=== PATIENT | female | born 2000 | race Caucasian/White ===

== ENCOUNTER 2020-08-21 11:10 | Emergency (ER) | payer OTHER, SELFPAY ==
[2020-08-21 11:29] VITALS: BP 123/68; PULSE 80; RESP 18; TEMP 36.7; O2SAT 98; BMI 34.3
--- NOTE | 2020-08-21 11:32 | ED.GENADULT ---
HPI - General Adult General Chief complaint: General Medical Stated complaint: rash Time Seen by Provider: 08/21/20 11:31 Source: patient Mode of arrival: ambulatory Limitations: no limitations History of Present Illness HPI narrative: patient woke up with rash on her face, she feels congested and has a headache. works at [place] and is concerned about COVID Onset (ago): day(s) Location: face Severity: mild Associated symptoms: cough, headaches and nausea/vomiting Related Data Previous Rx's Medication Instructions Recorded hydrocortisone 1 appl TOPICAL BID #28.35 g 08/21/20 Allergies Allergy/AdvReac Type Severity Reaction Status Date / Time No Known Allergies Allergy Verified 08/21/20 11:32 [No Known Allergies*] Review of Systems Constitutional: Constitutional: Reports no additional constitutional complaints Eyes: Eyes: Reports no additional eye complaints ENT: Denies dizziness Cardiovascular: Cardiovascular: Reports no additional cardiovascular complaints Respiratory: Respiratory: Reports as per HPI Gastrointestinal: Gastrointestinal: Reports no additional gastrointestinal complaints Genitourinary: Genitourinary: Reports no additional female genitourinary complaints Musculoskeletal: Musculoskeletal: Reports no additional musculoskeletal complaints Integumentary/Breasts: Skin/Breast: Denies rash Neurologic: Reports system reviewed and no additional complaints, except as documented, Denies dizziness and Denies Sensory deficit (Neuro) Psychiatric: Psychiatric: Denies anxiety Physical Exam Vital Signs: Vital Signs: Last Vital Signs Temp 98.1 F 08/21/20 11:29 Pulse 80 08/21/20 11:29 Resp 18 08/21/20 11:29 BP 123/68 08/21/20 11:29 Pulse Ox 98 08/21/20 11:29 Body Mass Index 34.3 Const: General: healthy appearing Nutritional Appearance: average body habitus Orientation/consciousness: oriented to person and patient oriented x3 Limitations: no limitations HENMT: Head: Yes normal to inspection Ears: external ears normal General nose exam: Normal external nose present Mouth: Normal oral and palatal mucosa present and oropharynx normal Throat: Yes posterior oropharynx normal Eyes: General: appearance normal, both eyes and all related structures Neck: Other: supple Neck: Yes normal visual inspection Chest: Chest palpation & inspection: normal inspection of the chest Resp: Auscultation: clear to auscultation bilaterally Cardio: Jugular venous distension: no JVD Rate: regular rate Rhythm: regular rhythm Heart sounds: S1 normal heart sound present and S2 normal heart sound present GI: Inspection: Yes normal to inspection Palpation (GI): Soft to palpation, nontender and No hepatosplenomegaly present Auscultation: normal bowel sounds : General: Yes no CVA tenderness Back/Spine/Pelvis: Back: no CVA tenderness Skin: Other: Facial eczema likely from wearing a mask all the time Neuro: General: oriented to person and patient oriented x3 Cranial nerves: Yes CN's II-XII intact bilaterally Motor exam (neuro): 5/5 motor strength present throughout Sensory Exam: No Sensory deficit (Neuro) Extrem: General: Yes normal to inspection Psych: Appearance: grossly normal Course Course Course Narrative: will check patient for COVID Medical Decision Making MDM Narrative Medical decision making narrative: facial eczema will place on hydrocortisone, and possible COVID Discharge Plan Discharge Clinical Impression: COVID-19 Eczema Qualifiers: Eczema type: unspecified Qualified Code(s): L30.9 - Dermatitis, unspecified Patient Disposition: Home, Self-Care Instructions: Contact Dermatitis (ED), Eczema (ED), COVID-19 (Coronavirus Disease 2019) (ED) Prescriptions: New hydrocortisone 2.5 % ointment 1 appl topical BID Qty: 28.35 RF: 0 Referrals: Po,Kike Huffman MD [Primary Care Provider] - 2 days
[2020-08-21 12:34] LABS: COVID-19 Test Negative (Negative); IDNOW Serial# 9DD0AD1C
== END 2020-08-21 11:54 | disposition home or self-care (01) ==
LOC: HO.ED 11:42
PROVIDERS: Emergency Provider Emergency Medicine; PCP Internal Medicine
DX: L30.9 Dermatitis, unspecified (principal); Z20.822 Contact with and (suspected) exposure to COVID-19; R05 Cough; R51.9 Headache, unspecified
CPT/HCPCS: 36415; 87635; 99283

== ENCOUNTER 2020-09-04 10:01 | Emergency (ER) | payer OTHER, SELFPAY ==
--- NOTE | 2020-09-04 10:08 | XR_ITS ---
EXAMINATION: XR ANKLE, RIGHT CLINICAL INFORMATION: Pain status post inversion injury COMPARISON: Right ankle radiograph from 10/15/2019 TECHNIQUE: AP, lateral, and mortise views of the right ankle. FINDINGS: There is no acute visible fracture or dislocation. The ankle mortise is symmetric. Joint spaces and alignment are maintained. No large ankle joint effusion noted. Mild soft tissue swelling overlying the lateral malleolus. XR/XR ankle RT min 3V IMPRESSION: 1. No acute visible fracture or dislocation. 2. Mild soft tissue swelling overlying the lateral malleolus.
[2020-09-04 10:09] VITALS: BP 120/66; PULSE 75; RESP 18; TEMP 36.5; O2SAT 100; BMI 34.9
--- NOTE | 2020-09-04 10:09 | ED.LOWEXIN ---
HPI - Extremity Injury (Lower) General Chief Complaint: Extremity Injury, Lower Stated Complaint: RT ANKLE INJ Time Seen by Provider: 09/04/20 10:08 Source: patient Mode of arrival: ambulatory Limitations: no limitations History of Present Illness HPI Narrative: inversion injury of R ankle due to slipping in snow last night, hx of injury to that ankle in past, able to bear some weight but painful MD complaint: ankle injury Onset (ago): day(s) (last night) Injury: Right: ankle Type of Injury: inversion Place: home Severity: mild Relieving factors: nothing Exacerbating factors: weight bearing Context: other (slipped in snow) Associated symptoms: swelling Other symptoms: none Related Data Previous Rx's Medication Instructions Recorded hydrocortisone 1 appl TOPICAL BID #28.35 g 08/21/20 Allergies Allergy/AdvReac Type Severity Reaction Status Date / Time ibuprofen AdvReac Rash Verified 09/04/20 10:12 [From DayQuil Sinus Pressure/Pain] pseudoephedrine AdvReac Rash Verified 09/04/20 10:12 [From DayQuil Sinus Pressure/Pain] Review of Systems Review of Systems: Constitutional : No Fever, No Chills Cardiovascular : No Chest Pain, No SOB Respiratory : No Cough, No Dyspnea Gastrointestinal : No Nausea, No Vomiting Musculoskeletal : positive joint pain, No Myalgias, pos Joint Swelling Skin : No Skin lacerations, No rash Neuro : No Weakness, No Numbness PMFSH Past Medical History Attestation statement: The following information was validated with the patient. Medical History No known health problems Social History Social History (Updated 09/04/20 @ 10:18 by Lisbeth Wasserman DO) Smoking Status: Never smoker Advance Directives: No Advance Directives Information Provided: Yes Physical Exam Vital Signs: Vital Signs: Last Vital Signs Temp 97.7 F 09/04/20 10:09 Pulse 75 09/04/20 10:09 Resp 18 09/04/20 10:09 BP 120/66 09/04/20 10:09 Pulse Ox 100 09/04/20 10:09 Body Mass Index 34.9 Appearance: Alert. Oriented X3. No acute distress. Eyes: Pupils equal, round and reactive to light. ENT: Pharynx normal. Neck: Normal inspection. Neck supple. CVS: Normal heart rate and rhythm. Pulses normal. Respiratory: No respiratory distress. Abdomen: Soft and nontender. Skin: Skin warm and dry. Normal skin color. Normal skin turgor. Extremities: R ankle ttp along lateral malleolus, mild swelling, distal NV intact, no prox fibula ttp Neuro: Oriented X 3. No motor deficit. No sensory deficit. Procedures Orthopedic Splinting/Casting Injury #1: Side: left Lower Extremity Injury Location: ankle Lower Extremity Immobilizer: AirCast Other Orthopedic Equipment: crutches MDM - Extremity Injury (Lower) MDM Narrative Medical decision making narrative: 20 yo female with hx of R ankle injury in the past she is NV intact, will need xray and likely sprain - air cast and crutches ordered Discharge Plan Discharge Clinical Impression: Ankle sprain and strain Patient Disposition: Home, Self-Care Instructions: Ankle Sprain (ED) Additional Instructions: return to ED for any worsening symptoms or concerns use air cast x 5 days and crutches, weight bearing as tolerated Prescriptions: No Action hydrocortisone 2.5 % ointment 1 appl topical BID Qty: 28.35 RF: 0 Referrals: Kike Reynolds MD [Primary Care Provider] - 5 days (if not better) Stand Alone Forms: Work/School Release
== END 2020-09-04 11:04 | disposition home or self-care (01) ==
PROVIDERS: Emergency Provider Emergency Medicine; PCP Internal Medicine
DX: S93.401A Sprain of unspecified ligament of right ankle, initial encounter (principal); S96.911A Strain of unspecified muscle and tendon at ankle and foot level, right foot, initial encounter; W00.0XXA Fall on same level due to ice and snow, initial encounter; Y93.89 Activity, other specified; Y92.014 Private driveway to single-family (private) house as the place of occurrence of the external cause; Y99.9 Unspecified external cause status
CPT/HCPCS: 73610; 99283

== ENCOUNTER 2021-07-01 13:07 | Emergency (ER) | payer BC, SELFPAY ==
--- NOTE | ~2021-07-01 | XR_ITS ---
EXAMINATION: XR ANKLE, RIGHT CLINICAL INFORMATION: Right ankle injury COMPARISON: Previous x-rays most recent September 2020 TECHNIQUE: AP, lateral, and mortise views of the right ankle. FINDINGS: The bones and soft tissues are normal. No fracture. Alignment is anatomic. Joint spaces are maintained. No joint effusion. XR/XR ankle RT min 3V IMPRESSION: Normal right ankle.
[2021-07-01 13:59] VITALS: BP 112/68; PULSE 84; RESP 18; TEMP 36.8; O2SAT 98; BMI 34.5
--- NOTE | 2021-07-01 14:28 | ED.LOWEXIN ---
HPI - Extremity Injury (Lower) General Chief Complaint: Extremity Injury, Lower Stated Complaint: r foot inj Time Seen by Provider: 07/01/21 14:18 Source: patient Mode of arrival: ambulatory History of Present Illness HPI Narrative: 21-year-old female with no significant past medical history presenting to the ED complaining of right ankle pain s/p twisting injury last night. Reports associated numbness/paresthesias. Denies head trauma/LOC or injury to other area MD complaint: ankle injury Related Data Previous Rx's Medication Instructions Recorded hydrocortisone 2.5 % topical 1 appl TOPICAL BID #28.35 g 08/21/20 ointment Allergies Allergy/AdvReac Type Severity Reaction Status Date / Time ibuprofen AdvReac Mild Rash Verified 07/01/21 13:59 [From DayQuil Sinus Pressure/Pain] pseudoephedrine AdvReac Mild Rash Verified 07/01/21 13:59 [From DayQuil Sinus Pressure/Pain] Review of Systems Review of Systems: Constitutional: No Fever, No Chills ENT/Mouth: No Ear Pain, No Nasal Congestion, No sore throat Cardiovascular: No Chest Pain, No SOB Respiratory: No Cough Gastrointestinal: No Nausea, No Vomiting, No Abdominal pain Genitourinary: No Dysuria, No Urinary Frequency Musculoskeletal: + joint pain, No Myalgias, No Joint Swelling Skin: No Skin Lesions, No rash Neuro: No Weakness, + Numbness, + Paresthesias Yes all other systems are reviewed and are negative [facility] Past Medical History Attestation statement: The following information was validated with the patient. Medical History No known health problems Social History Social History Advance Directives: No Advance Directives Information Provided: Yes Patient : No Physical Exam Vital Signs: Vital Signs: Last Vital Signs Temp 98.2 F 07/01/21 13:59 Pulse 84 07/01/21 13:59 Resp 18 07/01/21 13:59 BP 112/68 07/01/21 13:59 Pulse Ox 98 07/01/21 13:59 Body Mass Index 34.5 Const: General: cooperative, healthy appearing and no acute distress Orientation/consciousness: patient oriented x3 Limitations: no limitations HENMT: Head: Yes normal to inspection Ears: hearing grossly normal bilaterally General nose exam: Normal external nose present Face and sinus: Yes normal facial exam Eyes: General: appearance normal, both eyes and all related structures EOM: EOMs intact bilaterally Neck: Neck: Yes normal visual inspection and Yes no meningeal signs Resp: Effort & Inspection: normal respiratory effort and no respiratory distress Cardio: Rate: regular rate Peripheral pulses: dorsalis pedis present Skin: Rashes: no rashes Wounds: no wounds Neuro: Other: Ambulating with limping gait General: patient oriented x3, tone normal, moves all extremities and no meningeal signs Extrem: Other: Right ankle with mild lateral malleolar swelling. Tender to palpation good to lateral aspect. Range of motion limited secondary to pain. Neurovascularly intact distally. Foot nontender. No ecchymosis/erythema or warmth Course Course Course Narrative: XR ankle RT min 3V IMPRESSION: Normal right ankle. >> air cast applied, patient is to follow up with PCP as needed MDM - Extremity Injury (Lower) MDM Narrative Medical decision making narrative: 21-year-old female with no significant past medical history presenting to the ED complaining of right ankle pain s/p twisting injury last night. On exam vital signs stable, NAD. Concern for ankle sprain versus fracture Will obtain x-rays Differential Diagnosis Differential diagnosis: Likely ankle sprain and strain and ankle fracture Medical Records Attestation: I reviewed the patient's medical records. Lab Data Attestation: I reviewed the patient's lab results. Discharge Plan Discharge Clinical Impression: Ankle sprain and strain Patient Disposition: Home, Self-Care Instructions: Ankle Sprain (ED) Additional Instructions: Your x-ray is unremarkable, you sprained her ankle Wear Aircast at home for stability/comfort Ice and elevate your ankle, take Tylenol and Motrin Follow-up with her doctor as needed Prescriptions: No Action hydrocortisone 2.5 % ointment 1 appl topical BID Qty: 28.35 RF: 0 Referrals: Po,Kike Huffman MD [Primary Care Provider] - 1 week (as needed)
== END 2021-07-01 15:48 | disposition home or self-care (01) ==
PROVIDERS: Emergency Provider Emergency Medicine; PCP Internal Medicine
DX: S93.401A Sprain of unspecified ligament of right ankle, initial encounter (principal); M25.571 Pain in right ankle and joints of right foot; X50.1XXA Overexertion from prolonged static or awkward postures, initial encounter; Y93.9 Activity, unspecified; Y92.9 Unspecified place or not applicable; Y99.9 Unspecified external cause status
CPT/HCPCS: 73610; 99283

== ENCOUNTER 2022-02-02 02:41 | Emergency (ER) | payer BC, SELFPAY ==
--- NOTE | 2022-02-02 | ECG_ITS ---
Test Reason : CHEST PAIN Blood Pressure : / mmHG Vent. Rate : 096 BPM Atrial Rate : 096 BPM P-R Int : 142 ms QRS Dur : 082 ms QT Int : 338 ms P-R-T Axes : 053 050 027 degrees QTc Int : 427 ms Normal sinus rhythm Normal ECG No previous ECGs available Referred By: Generic ED Physician Electronically Signed By:ENZO NAIDU
--- NOTE | ~2022-02-02 | XR_ITS ---
EXAMINATION: XR CHEST CLINICAL INFORMATION: Shortness of breath, Covid COMPARISON: None TECHNIQUE: Frontal view of the chest was obtained. FINDINGS: The lungs are well expanded. There is no focal consolidation, edema, or effusion. No pneumothorax. The cardiomediastinal silhouette is within normal limits. No acute osseous abnormality. XR/XR chest 1V IMPRESSION: No acute pulmonary finding.
[2022-02-02 02:46] VITALS: BP 131/69; PULSE 97; RESP 16; TEMP 36.9; O2SAT 100; BMI 33.6
[2022-02-02 03:08] LABS: MANUAL DIFF FLAG NO
[2022-02-02 03:11] LABS: Basophils Percent Auto 0.3 % (0-2); Eosinophils Absolute Auto 0.3 X10*3/uL (0.0-0.4); Eosinophils Percent Auto 2.8 % (0-4); Hematocrit 39.7 % (37.0-47.0); Hemoglobin 13.4 g/dl (12.0-16.0); Imm Gran Abs Auto 0.05 X10*3/uL (0.00-0.03); Imm Gran Pct Auto 0.4 % (0.0-0.4); Lymphocytes Percent Auto 24.9 % (20-40); Mean Corpuscular HGB Conc 33.8 g/dl (31.0-35.0); Mean Corpuscular Hemoglobin 30.3 pg (27.0-33.0); Mean Corpuscular Volume 89.8 fL (80.0-98.0); Mean Platelet Volume 9.1 fL (9.4-12.3); Monocytes Absolute Auto 0.7 X10*3/uL (0.1-1.2); Neutrophils Absolute Auto 7.9 x10*3/uL (2.0-8.3); Neutrophils Percent Auto 65.6 % (45-73); Platelet Count 383 X10*3/uL (160-400); Red Blood Count 4.42 X10*6/uL (4.20-5.50); Red Cell Distribution Width 13.2 % (11.0-16.0); White Blood Count 12.1 X10*3/uL (4.8-10.8)
[2022-02-02 03:40] LABS: Alanine Aminotransferase 17 U/L (0-31); Albumin Level 4.4 g/dL (3.5-5.0); Alkaline Phosphatase 89 U/L (39-117); Anion Gap 13 (12-20); Aspartate Amino Transferase 14 U/L (5-31); Bilirubin Total 0.3 mg/dL (0.0-1.0); Blood Urea Nitrogen 10 mg/dL (9-16); Calcium 9.4 mg/dL (8.4-10.2); Carbon Dioxide 25 mmol/L (22-29); Chloride 105 mmol/L (96-108); Creatinine Clr Calc Pharmacy 121.8; Estimated Glomerular Filt Rate > 60; Glucose Random 110 mg/dL (60-115); Potassium 4.1 mmol/L (3.3-5.1); Sodium 139 mmol/L (135-145); Total Protein 7.3 g/dL (6.5-8.0)
[2022-02-02 03:42] LABS: Troponin-I High Sensitivity < 3.5 ng/L (<3.5-17.0)
[2022-02-02 04:38] VITALS: BP 122/73; PULSE 87; RESP 15; TEMP 36.9; O2SAT 97
[2022-02-02 05:05] LABS: D Dimer High Sensitivity < 150 NG/ML
[2022-02-02 05:10] LABS: Troponin-I High Sensitivity < 3.5 ng/L (<3.5-17.0)
--- NOTE | 2022-02-02 05:11 | ED_ITS ---
HPI - Chest Pain General Chief Complaint: Chest Pain Stated Complaint: COVID + 1 week ago, diff breathing Time Seen by Provider: 02/02/22 04:28 Source: patient Mode of arrival: ambulatory Limitations: no limitations History of Present Illness HPI narrative: 21-year-old female came in for evaluation of chest pain. Patient's symptoms started since yesterday as chest tightness and shortness of breath, symptoms started since yesterday as intermittent lasts for about 5-10 minutes, started since this morning pain is constant which is more of chest tightness and shortness of breath. No lower extremity swelling or tenderness, no recent travel, no history of DVT/PE. Related Data Previous Rx's Medication Instructions Recorded hydrocortisone 2.5 % topical 1 appl topical BID #28.35 grams 08/21/20 ointment albuterol sulfate 90 mcg/actuation 1 inh inhalation QID PRN shortness 02/02/22 aerosol inhaler of breath or wheezing #8.5 grams prednisone 20 mg tablet 20 mg PO BID #10 tabs 02/02/22 Allergies Allergy/AdvReac Type Severity Reaction Status Date / Time ibuprofen AdvReac Mild Rash Verified 02/02/22 02:48 [From DayQuil Sinus Pressure/Pain] pseudoephedrine AdvReac Mild Rash Verified 02/02/22 02:48 [From DayQuil Sinus Pressure/Pain] Review of Systems Review of Systems: All other systems are reviewed and are negative Constitutional: Reports as per HPI and Reports no additional constitutional complaints Eyes: Reports as per HPI and Reports no additional eye complaints Reports system reviewed and no additional complaints, except as documented Cardiovascular: Reports as per HPI and Reports no additional cardiovascular complaints Respiratory: Reports as per HPI and Reports no additional respiratory complaints Gastrointestinal: Reports as per HPI and Reports no additional gastrointestinal complaints Genitourinary: Reports no additional female genitourinary complaints Musculoskeletal: Reports no additional musculoskeletal complaints Skin/Breast: Reports system reviewed and no additional complaints, except as docu Psychiatric: Reports no additional psychiatric complaints Endocrine: Reports no additional endocrine complaints Hematologic/Lymphatic: Reports no additional hematologic/lymphatic complaints Allergic/Immunologic: Reports no additional allergic/immunologic complaints Reports system reviewed and no additional complaints, except as documented and Reports Abnormal speech present [facility] Past Medical History Medical History Migraine Social History Social History Advance Directives: No Advance Directives Information Provided: No Physical Exam Vital Signs: Vital Signs: Last Vital Signs Temp 98.5 F 02/02/22 04:38 Pulse 87 02/02/22 04:38 Resp 15 02/02/22 04:38 BP 122/73 02/02/22 04:38 Pulse Ox 97 02/02/22 04:38 O2 Del Method 02/02/22 04:38 BMI result Body Mass Index 33.6 Vital signs have been reviewed as appeared to be correct. Blood pressure normal. Heart rate normal. Respiration rate normal. Temperature normal. Oxygen saturation normal. Appearance: Alert. Oriented X3. No acute distress. Head: Normal external exam. Normocephalic. Atraumatic. No Flores signs noted. No raccoon eyes noted Eyes: PERRLA. EOMI. Conjunctiva and sclera normal. Eyelids normal. ENT: TM's Normal. Pharynx normal. Uvula midline. Moist mucous membranes. No trismus noted. No drooling noted. No muffled voice noted. Neck: Normal inspection. Neck supple. FROM. No adenopathy. Thyroid Normal. No meningeal signs. No neck mass noted. CVS: Normal heart rate and rhythm. Heart sound normal. No murmurs noted. Pulses normal throughout. Respiratory: No respiratory distress. Painless inspiration. Breath sounds normal. Diffuse mild expiratory wheezing with prolonged expiration. Chest nontender. No accessory muscle usage noted or decreased air movement noted. Abdomen: Soft and nontender. Bowel sounds normal in all 4 quadrants. No distention noted. No organomegaly noted. No visible injury noted. Back: No CVA tenderness. Full range of motion noted. Skin: Skin warm and dry. Normal skin color. Normal skin turgor. No rashes/lesions/lacerations noted. Extremities: No lower extremity edema. Extremities exhibit normal range of motion. Extremities nontender. Neuro: Oriented X 3. Cranial nerve exam: II-XII are grossly intact No motor deficit. No sensory deficit. Reflexes normal. Course Course Course Narrative: Assessment and plan. 21-year-old female came in for evaluation of chest tightness and difficulty breathing, physical exam is consistent with bronchitis, negative troponin and negative D-dimer. Patient with HEART score of 0 MDM - Chest Pain Medical Records Data Attestation: I reviewed the patient's medical records. Lab Data Attestation: I reviewed the patient's lab results. Result diagrams: 02/02/22 03:02 02/02/22 03:02 Labs: Lab Results 02/02/22 02/02/22 02/02/22 Range/Units 03:02 03:02 03:02 WBC 12.1 H (4.8-10.8) X10*3/uL RBC 4.42 (4.20-5.50) X10*6/uL Hgb 13.4 (12.0-16.0) g/dl Hct 39.7 (37.0-47.0) % MCV 89.8 (80.0-98.0) fL MCH 30.3 (27.0-33.0) pg MCHC 33.8 (31.0-35.0) g/dl RDW 13.2 (11.0-16.0) % Plt Count 383 (160-400) X10*3/uL MPV 9.1 L (9.4-12.3) fL Immature Gran % (Auto) 0.4 (0.0-0.4) % Neut % (Auto) 65.6 (45-73) % Lymph % (Auto) 24.9 (20-40) % [place] % (Auto) 6.0 (2-11) % Eos % (Auto) 2.8 (0-4) % Baso % (Auto) 0.3 (0-2) % Lymph # (Auto) 3.0 (1.2-4.9) X10*3/uL [place] # (Auto) 0.7 (0.1-1.2) X10*3/uL Eos # (Auto) 0.3 (0.0-0.4) X10*3/uL Baso # (Auto) 0.0 (0.0-0.2) X10*3/uL Abs Immat Gran (auto) 0.05 H (0.00-0.03) X10*3/uL Absolute Neuts (auto) 7.9 (2.0-8.3) x10*3/uL Absolute Nucleated RBC 0.000 (0.0-0.012) X10*3/uL Nucleated RBC % (auto) 0.0 (0.0-0.2) /100WBC D-Dimer High Sensitivty NG/ML Sodium 139 (135-145) mmol/L Potassium 4.1 (3.3-5.1) mmol/L Chloride 105 (96-108) mmol/L Carbon Dioxide 25 (22-29) mmol/L Anion Gap 13 (12-20) BUN 10 (9-16) mg/dL Creatinine 0.76 (0.5-1.4) mg/dL Estim Creat Clear Calc 121.8 Estimated GFR > 60 Random Glucose 110 (60-115) mg/dL Calcium 9.4 (8.4-10.2) mg/dL Total Bilirubin 0.3 (0.0-1.0) mg/dL AST 14 (5-31) U/L ALT 17 (0-31) U/L Alkaline Phosphatase 89 (39-117) U/L Troponin I High Sens < 3.5 (<3.5-17.0) ng/L Total Protein 7.3 (6.5-8.0) g/dL Albumin 4.4 (3.5-5.0) g/dL 02/02/22 02/02/22 Range/Units 04:47 04:47 WBC (4.8-10.8) X10*3/uL RBC (4.20-5.50) X10*6/uL Hgb (12.0-16.0) g/dl Hct (37.0-47.0) % MCV (80.0-98.0) fL MCH (27.0-33.0) pg MCHC (31.0-35.0) g/dl RDW (11.0-16.0) % Plt Count (160-400) X10*3/uL MPV (9.4-12.3) fL Immature Gran % (Auto) (0.0-0.4) % Neut % (Auto) (45-73) % Lymph % (Auto) (20-40) % [place] % (Auto) (2-11) % Eos % (Auto) (0-4) % Baso % (Auto) (0-2) % Lymph # (Auto) (1.2-4.9) X10*3/uL [place] # (Auto) (0.1-1.2) X10*3/uL Eos # (Auto) (0.0-0.4) X10*3/uL Baso # (Auto) (0.0-0.2) X10*3/uL Abs Immat Gran (auto) (0.00-0.03) X10*3/uL Absolute Neuts (auto) (2.0-8.3) x10*3/uL Absolute Nucleated RBC (0.0-0.012) X10*3/uL Nucleated RBC % (auto) (0.0-0.2) /100WBC D-Dimer High Sensitivty < 150 NG/ML Sodium (135-145) mmol/L Potassium (3.3-5.1) mmol/L Chloride (96-108) mmol/L Carbon Dioxide (22-29) mmol/L Anion Gap (12-20) BUN (9-16) mg/dL Creatinine (0.5-1.4) mg/dL Estim Creat Clear Calc Estimated GFR Random Glucose (60-115) mg/dL Calcium (8.4-10.2) mg/dL Total Bilirubin (0.0-1.0) mg/dL AST (5-31) U/L ALT (0-31) U/L Alkaline Phosphatase (39-117) U/L Troponin I High Sens < 3.5 (<3.5-17.0) ng/L Total Protein (6.5-8.0) g/dL Albumin (3.5-5.0) g/dL Imaging Data Chest x-ray: Attestation: I personally reviewed and interpreted this imaging study as follows: Radiologist's impression: No acute pulmonary finding. ECG Data ECG #1: Attestation: I personally reviewed and interpreted this ECG as follows: Interpretation: Normal sinus rhythm at 96 beats per minutes, normal axis deviation, normal i ntervals. No ST-T changes, no old EKG to compare. Discharge Plan Discharge Clinical Impression: Atypical chest pain, Acute bronchitis Patient Disposition: Home, Self-Care Instructions: Acute Bronchitis (ED) Prescriptions: New prednisone 20 mg tablet 20 mg PO BID Qty: 10 0RF albuterol sulfate 90 mcg/actuation HFA aerosol inhaler 1 inh inhalation QID PRN (Reason: shortness of breath or wheezing) Qty: 8.5 0RF No Action hydrocortisone 2.5 % ointment 1 appl topical BID Qty: 28.35 0RF Referrals: Po,Kike Huffman MD [Primary Care Provider] -
[2022-02-02 05:57] VITALS: BP 114/69; PULSE 82; RESP 16; TEMP 36.9; O2SAT 95
[2022-02-02] MEDS: Albuterol Sulfate 90 MCG 8 GM INHALER 2 PUFF INHALE (06:31)
[2022-02-02] MEDS: predniSONE 20 MG TABLET PO (06:31)
== END 2022-02-02 06:32 | disposition home or self-care (01) ==
PROVIDERS: Emergency Provider Emergency Medicine; PCP Internal Medicine
DX: U07.1 COVID-19 (principal); J20.9 Acute bronchitis, unspecified; R06.02 Shortness of breath; R07.89 Other chest pain; Z79.899 Other long term (current) drug therapy
CPT/HCPCS: 36415; 71045; 80053; 84484; 85025; 85379; 93005; 99284

== ENCOUNTER 2022-07-04 13:04 | Outpatient (REF) | payer BC, SELFPAY ==
[2022-07-04 14:50] LABS: Influenza A PCR NEGATIVE (Negative); Influenza B PCR NEGATIVE (Negative); Resp Syncy Virus RNA Qual PCR NEGATIVE (Negative); SARS COV2 PCR INHOUSE NEGATIVE (Negative)
== END 2022-07-04 13:05 | disposition home or self-care (01) ==
LOC: HO.LAB 13:04
DX: Z20.822 Contact with and (suspected) exposure to COVID-19 (principal); J06.9 Acute upper respiratory infection, unspecified
CPT/HCPCS: 0241U

== ENCOUNTER 2022-08-15 00:01 | Emergency (ER) | payer BC, SELFPAY ==
--- NOTE | 2022-08-15 | ECG_ITS ---
Test Reason : CHEST PAIN Blood Pressure : / mmHG Vent. Rate : 079 BPM Atrial Rate : 079 BPM P-R Int : 160 ms QRS Dur : 080 ms QT Int : 378 ms P-R-T Axes : 046 039 018 degrees QTc Int : 433 ms Normal sinus rhythm Normal ECG When compared with ECG of 02-FEB-2022 02:45, No significant change was found Referred By: Generic ED Physician Electronically Signed By:Carson Monreal
--- NOTE | ~2022-08-15 | XR_ITS ---
EXAMINATION: XR CHEST CLINICAL INFORMATION: Chest pain COMPARISON: 02/02/2022 TECHNIQUE: Frontal view of the chest was obtained. FINDINGS: The lungs are well expanded. There is no focal consolidation, edema, or effusion. No pneumothorax. The cardiomediastinal silhouette is within normal limits. No acute osseous abnormality. XR/XR chest 1V IMPRESSION: Clear lungs.
[2022-08-15 00:06] VITALS: BP 115/66; PULSE 73; RESP 20; TEMP 36.6; O2SAT 98; BMI 34.2
[2022-08-15 00:22] LABS: MANUAL DIFF FLAG NO
[2022-08-15 00:23] LABS: Basophils Absolute Auto 0.1 X10*3/uL (0.0-0.2); Basophils Percent Auto 0.5 % (0-2); Eosinophils Absolute Auto 0.1 X10*3/uL (0.0-0.4); Eosinophils Percent Auto 0.6 % (0-4); Hemoglobin 12.4 g/dl (12.0-16.0); Imm Gran Abs Auto 0.01 X10*3/uL (0.00-0.03); Imm Gran Pct Auto 0.1 % (0.0-0.4); Lymphocytes Absolute Auto 3.6 X10*3/uL (1.2-4.9); Lymphocytes Percent Auto 38.3 % (20-40); Mean Corpuscular HGB Conc 33.5 g/dl (31.0-35.0); Mean Corpuscular Hemoglobin 29.8 pg (27.0-33.0); Mean Corpuscular Volume 88.9 fL (80.0-98.0); Mean Platelet Volume 9.2 fL (9.4-12.3); Monocytes Absolute Auto 0.7 X10*3/uL (0.1-1.2); Neutrophils Absolute Auto 4.9 x10*3/uL (2.0-8.3); Neutrophils Percent Auto 53.5 % (45-73); Platelet Count 397 X10*3/uL (160-400); Red Blood Count 4.16 X10*6/uL (4.20-5.50); Red Cell Distribution Width 13.1 % (11.0-16.0); White Blood Count 9.3 X10*3/uL (4.8-10.8)
[2022-08-15 00:33] VITALS: BP 124/75; PULSE 77; RESP 20; TEMP 37; O2SAT 98
[2022-08-15 00:46] LABS: Troponin-I High Sensitivity < 3.5 ng/L (<3.5-17.0)
--- NOTE | 2022-08-15 00:53 | ED_ITS ---
HPI - Chest Pain General Chief Complaint: Chest Pain Stated Complaint: Chest pain Time Seen by Provider: 08/15/22 00:07 History of Present Illness HPI narrative: 22-year-old female presents today with having chest pain. The chest pain is sharp in nature over the right side of the chest. Been ongoing for about last 3 hours. Patient does not have any history of diabetes, hypertension, high cholesterol, smoking, mi. No travel history no leg swelling no history of blood clots in the past not on control. Patient from home. Related Data Home Medications Medication Instructions Recorded Confirmed No Known Home Meds 03/28/22 07/04/22 Allergies Allergy/AdvReac Type Severity Reaction Status Date / Time ibuprofen AdvReac Mild Rash Verified 08/15/22 00:12 [From DayQuil Sinus Pressure/Pain] pseudoephedrine AdvReac Mild Rash Verified 08/15/22 00:12 [From DayQuil Sinus Pressure/Pain] Review of Systems Review of Systems: No fever no chills no cough congestion Yes all other systems are reviewed and are negative PMFSH Past Medical History Attestation statement: The following information was validated with the patient. Medical History Migraine Viral upper respiratory tract infection with cough Social History Social History Housing: Apartment Alcohol intake: never Patient Tobacco Use Status: Never used Tobacco Smoked in Last 30 Days: No e-Cigarette/Vaping Use: Never Used Use of substances other than those prescribed or required for medical reasons: No Advance Directives: No Advance Directives Information Provided: Yes Patient : No service: No Current occupational status: employed Cognitive needs: No Hearing needs: No Vision needs: No Physical Exam Vital Signs: Vital Signs: Last Vital Signs Temp 98.6 F 08/15/22 00:33 Pulse 77 08/15/22 00:33 Resp 20 08/15/22 00:33 BP 124/75 08/15/22 00:33 Pulse Ox 98 08/15/22 00:33 O2 Del Method 08/15/22 00:33 BMI result Body Mass Index 34.2 Appearance: Alert. Oriented X3. No acute distress. Eyes: Pupils equal, round and reactive to light. ENT: Pharynx normal. Neck: Normal inspection. Neck supple. No lymph nodes noted. No crepitus CVS: Normal heart rate and rhythm. Pulses normal. Normal S1 and S2 Respiratory: No respiratory distress. Breath sounds normal. No Wheezing. No rales Abdomen: Soft and nontender. No rigidity. No distention. good BS x4 Skin: Skin warm and dry. Normal skin color. Normal skin turgor. Extremities: No lower extremity edema. Neurovascular intact to all extremities. No Lacerations. No Rash Neuro: Oriented X 3. No motor deficit. No sensory deficit. Moving all extermities. No slurred speech Medical Decision Making Differential Diagnosis Musculoskeletal chest pain, acute coronary syndrome, pulmonary emboli, rib fracture, pneumonia Two sets of cardiac enzymes are negative. Patient's heart score is 0. Well- appearing no distress. Unlikely to be ACS. Will discharge patient home. Chest x-ray showed no pneumonia no pneumothorax. History not consistent with PE. In stable condition will discharge Lab Data MDM Lab Attestation statement: I reviewed the patient's lab results. Patient's cardiac enzyme was negative. Will get a 2nd set. 08/15/22 00:17 08/15/22 00:17 Labs: Lab Results 08/15/22 08/15/22 08/15/22 Range/Units 00:17 00:17 00:17 WBC 9.3 (4.8-10.8) X10*3/uL RBC 4.16 L (4.20-5.50) X10*6/uL Hgb 12.4 (12.0-16.0) g/dl Hct 37.0 (37.0-47.0) % MCV 88.9 (80.0-98.0) fL MCH 29.8 (27.0-33.0) pg MCHC 33.5 (31.0-35.0) g/dl RDW 13.1 (11.0-16.0) % Plt Count 397 (160-400) X10*3/uL MPV 9.2 L (9.4-12.3) fL Immature Gran % (Auto) 0.1 (0.0-0.4) % Neut % (Auto) 53.5 (45-73) % Lymph % (Auto) 38.3 (20-40) % Sterling % (Auto) 7.0 (2-11) % Eos % (Auto) 0.6 (0-4) % Baso % (Auto) 0.5 (0-2) % Lymph # (Auto) 3.6 (1.2-4.9) X10*3/uL Sterling # (Auto) 0.7 (0.1-1.2) X10*3/uL Eos # (Auto) 0.1 (0.0-0.4) X10*3/uL Baso # (Auto) 0.1 (0.0-0.2) X10*3/uL Abs Immat Gran (auto) 0.01 (0.00-0.03) X10*3/uL Absolute Neuts (auto) 4.9 (2.0-8.3) x10*3/uL Absolute Nucleated RBC 0.000 (0.0-0.012) X10*3/uL Nucleated RBC % (auto) 0.0 (0.0-0.2) /100WBC Sodium 141 (135-145) mmol/L Potassium 3.9 (3.3-5.1) mmol/L Chloride 108 (96-108) mmol/L Carbon Dioxide 23 (22-29) mmol/L Anion Gap 14 (12-20) BUN 13 (9-16) mg/dL Creatinine 0.76 (0.5-1.4) mg/dL Estim Creat Clear Calc 121.8 Estimated GFR > 60 Random Glucose 85 (60-115) mg/dL Calcium 9.4 (8.4-10.2) mg/dL Troponin I High Sens < 3.5 (<3.5-17.0) ng/L 08/15/22 Range/Units 01:22 WBC (4.8-10.8) X10*3/uL RBC (4.20-5.50) X10*6/uL Hgb (12.0-16.0) g/dl Hct (37.0-47.0) % MCV (80.0-98.0) fL MCH (27.0-33.0) pg MCHC (31.0-35.0) g/dl RDW (11.0-16.0) % Plt Count (160-400) X10*3/uL MPV (9.4-12.3) fL Immature Gran % (Auto) (0.0-0.4) % Neut % (Auto) (45-73) % Lymph % (Auto) (20-40) % Sterling % (Auto) (2-11) % Eos % (Auto) (0-4) % Baso % (Auto) (0-2) % Lymph # (Auto) (1.2-4.9) X10*3/uL Sterling # (Auto) (0.1-1.2) X10*3/uL Eos # (Auto) (0.0-0.4) X10*3/uL Baso # (Auto) (0.0-0.2) X10*3/uL Abs Immat Gran (auto) (0.00-0.03) X10*3/uL Absolute Neuts (auto) (2.0-8.3) x10*3/uL Absolute Nucleated RBC (0.0-0.012) X10*3/uL Nucleated RBC % (auto) (0.0-0.2) /100WBC Sodium (135-145) mmol/L Potassium (3.3-5.1) mmol/L Chloride (96-108) mmol/L Carbon Dioxide (22-29) mmol/L Anion Gap (12-20) BUN (9-16) mg/dL Creatinine (0.5-1.4) mg/dL Estim Creat Clear Calc Estimated GFR Random Glucose (60-115) mg/dL Calcium (8.4-10.2) mg/dL Troponin I High Sens < 3.5 (<3.5-17.0) ng/L Independent Interpretation I performed an independent interpretation of an: EKG Interpretation: Sinus rhythm heart rate is 80 OK QRS QTC within normal limits there is no acute ST segment elevation noted. External Record Review External record reviewed: Inpatient record Scores Heart Score History: -0- slightly suspicious ECG: -0- normal Age: -0- < or = 45 Risk factory: -0- no risk factors known Troponin: -0- < or = normal limit Score: 0 Risk: 1.7% Discharge Plan Discharge Clinical Impression: Chest pain Patient Disposition: Home, Self-Care Instructions: Chest Pain (DC) Prescriptions: No Action No Known Home Meds Referrals: Rodolfo,Kike Huffman MD [Primary Care Provider] -
[2022-08-15 00:54] LABS: Anion Gap 14 (12-20); Blood Urea Nitrogen 13 mg/dL (9-16); Calcium 9.4 mg/dL (8.4-10.2); Carbon Dioxide 23 mmol/L (22-29); Chloride 108 mmol/L (96-108); Creatinine Clr Calc Pharmacy 121.8; Estimated Glomerular Filt Rate > 60; Glucose Random 85 mg/dL (60-115); Potassium 3.9 mmol/L (3.3-5.1); Sodium 141 mmol/L (135-145)
[2022-08-15 01:55] LABS: Troponin-I High Sensitivity < 3.5 ng/L (<3.5-17.0)
== END 2022-08-15 02:31 | disposition home or self-care (01) ==
PROVIDERS: Emergency Provider Emergency Medicine Emergency Medical Services; PCP Internal Medicine
DX: R07.89 Other chest pain (principal); Z79.899 Other long term (current) drug therapy
CPT/HCPCS: 36415; 71045; 80048; 84484; 85025; 93005; 99283; 99285

== ENCOUNTER 2023-06-09 14:47 | Outpatient (AMB) | payer BC, SELFPAY ==
[2023-06-09 14:51] VITALS: BP 132/72; PULSE 80; O2SAT 100; BMI 33.8
--- NOTE | 2023-06-09 14:51 | A.OFFPC_ITS ---
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 Accompanied by: Self / Same As Patient Allergies ibuprofen [From DayQuil Sinus Pressure/Pain] Adverse Reaction (Mild, Verified 06/09/23 14:51) Rash pseudoephedrine [From DayQuil Sinus Pressure/Pain] Adverse Reaction (Mild, Verified 06/09/23 14:51) Rash Medication List - Last Reconciled 06/09/23 by Kike Reynolds MD aspirin 162 mg PO DAILY PNV,calcium 12-kujn-gsfzp acid 27 mg iron- 1 mg (M- Plus) 1 tab PO DAILY Tobacco use date assessed: 08/20/22 Dental Screening Dental Screen Date: 06/09/23 Did you have a dental visit in the last 12 months?: Yes Did you have a dental problem in the last 6 months where you did not have access to dental care?: No Was dental information given to patient?: Patient has dentist HPI Annual Physical HPI Details 23-year-old obese female with a history of costochondritis coming in for physical exam. Last seen in August 2022. Presently 5 months . LMP 11/17/2022 [facility] Medical History Viral upper respiratory tract infection with cough Migraine Social History Housing: Apartment Alcohol intake: never Patient Tobacco Use Status: Never used Tobacco e-Cigarette/Vaping Use: Never Used service: No Current occupational status: employed Cognitive needs: No Hearing needs: No Vision needs: No Questionnaire PHQ-9 Over the last 2 weeks, how often have you been bothered by any of the following problems? 1. Little interest or pleasure in doing things: not at all 2. Feeling down, depressed, or hopeless: not at all 3. Trouble falling or staying asleep, or sleeping too much: not at all 4. Feeling tired or having little energy: not at all 5. Poor appetite or overeating: not at all 6. Feeling bad about yourself - or that you are a failure or have let yourself or your family down: not at all 7. Trouble concentrating on things, such as reading the newspaper or watching television: not at all 8. Moving or speaking so slowly that other people could have noticed. Or the opposite - being so fidgety or restless that you have been moving around a lot more than usual: not at all 9. Thoughts that you would be better off or of hurting yourself in some way: not at all Total score: 0 Depression Screening Interpretation: Negative Depression Screening Done: Yes Source: Developed by Drs. Brandon Murdock, Libra Hawthorne, Artie Amezquita and colleagues, with an educational isidoro from [employer]. Thrive Questionnaire Date Thrive assessed: 08/20/22 AUDIT C Alcohol Use Questionnaire (AUDIT-C) 1. How often do you have a drink containing alcohol?: Never 3. How often do you have six or more drinks on one occasion?: Never Total Score: 0 BENNIE-7 AMB Questionnaire BENNIE-7 Date BENNIE - 7 assessed: 08/20/22 Source: Developed by Drs. Brandon Murdock, Libra Hawthorne, Artie Amezquita and colleagues, with an educational isidoro from [employer]. Review of Systems Const Denies poor appetite and Denies weakness Eyes Denies no additional complaints ENT Reports Normal hearing present, Denies dizziness, Denies nasal congestion, Denies tinnitus and Denies sore throat Card Denies chest pain, Denies syncope, Denies rapid heart rate and Denies dyspnea Resp Denies cough and Denies dyspnea GI Denies change in stool character, Reports constipation, Denies diarrhea, Denies nausea and Denies vomiting Denies urinary frequency, Denies difficulty voiding and Denies dysuria Neuro Reports Normal hearing present, Denies confusion, Denies dizziness, Denies syncope and Denies weakness Psych Denies confusion Physical exam (Primary Care) Vital Signs: Last Vital Signs Pulse 80 06/09/23 14:51 BP 132/72 06/09/23 14:51 Pulse Ox 100 06/09/23 14:51 Oxygen Delivery Method Room Air 06/09/23 14:51 BMI result Body Mass Index 33.8 Tobacco/Smoking Status: Tobacco use Status Tobacco use date assessed 08/20/22 06/09/23 14:52 Patient Tobacco Use Status Never used Tobacco 06/09/23 14:52 e-Cigarette/Vaping Use Never Used 06/09/23 14:52 PHQ-9: PHQ-9 Score PHQ-9: Total score 0 06/09/23 14:52 Depression Screening Interpretation: Negative Thrive Assessment: Date of Thrive Assessment Date Thrive assessed 08/20/22 06/09/23 14:52 Const General: No confusion Orientation/consciousness: No confusion HENMT Head: Yes normocephalic Ears: external ears normal and TM's normal bilaterally Face and sinus: Yes normal facial exam Mouth: moist mucous membranes Throat: Yes tonsils normal Eyes Conjunctivae: conjunctivae normal Pupils: Equal, round and reactive pupils present and Pupil accommodation reflex normal Direct Ophthalmoscopy: normal light reflex Neck Neck: No lymphadenopathy Thyroid: Thyroid normal Chest Chest palpation & inspection: normal inspection of the chest Resp Effort & Inspection: normal respiratory effort and no audible wheezes Auscultation: clear to auscultation bilaterally, no crackles, no wheezes and lung sounds not diminished Cardio Rate: regular rate Rhythm: regular rhythm Peripheral pulses: radial pulses present and dorsalis pedis present GI Other: Uterus is enlarged to 5 months Palpation (GI): no masses Auscultation: normal bowel sounds and normoactive bowel sounds Rectal Exam - Female: deferred Skin General skin exam: no rashes or lesions noted Rashes: no rashes Neuro General: No confusion Cranial nerves: Yes Equal, round and reactive pupils present and Yes Normal hearing present Cognition (Neuro): normal cognition Gait exam (Neuro): Normal gait present Motor exam (neuro): 5/5 motor strength present throughout Deep tendon reflexes (DTR's): Right brachioradialis reflex intensity grade: 2+, Left brachioradialis reflex intensity grade: 2+, Right patellar reflex intensity grade: 2+ and Left patellar reflex intensity grade: 2+ Extrem General: No edema Assessment and Plan Assessment & Plan (1) Annual physical exam: Code(s): Z00. - Encounter for general adult medical examination without abnormal findings (2) with 20 completed weeks gestation: Code(s): Z3A.20 - 20 weeks gestation of Coding Level of Care Code Est Pt Prev Care 18-39y(32724) Diagnoses Annual physical exam Z00. with 20 completed weeks gestation Z3A.20
== END 2023-06-09 16:29 | disposition home or self-care (01) ==
PROVIDERS: PCP Internal Medicine; Visit Provider Internal Medicine
DX: Z00.00 Encounter for general adult medical examination without abnormal findings (principal); Z3A.20 20 weeks gestation of pregnancy
CPT/HCPCS: 99395

== ENCOUNTER 2025-02-21 08:25 | Emergency (ER) | payer BC, SELFPAY ==
--- NOTE | ~2025-02-21 | XR_ITS ---
EXAMINATION: XR ANKLE 2 VIEWS RIGHT, XR FOOT 3 OR MORE VIEWS RIGHT HISTORY: FALL, MEDIAL PAIN COMPARISON: Comparison is made with the prior examination of the right ankle dated 07/01/2021 and the prior examination of the right foot dated 10/15/2019. FINDINGS: Six views of the right foot and ankle are submitted. Osseous mineralization is normal. There is no fracture or dislocation. The joint spaces are preserved. The soft tissues are unremarkable. XR/XR foot RT min 3V IMPRESSION: Unremarkable examination of the right foot and ankle. Electronically signed by: Brandon Shafer MD 02/21/2025 10:01 AM EDT
--- NOTE | ~2025-02-21 | XR_ITS ---
EXAMINATION: XR ANKLE 2 VIEWS RIGHT, XR FOOT 3 OR MORE VIEWS RIGHT HISTORY: FALL, MEDIAL PAIN COMPARISON: Comparison is made with the prior examination of the right ankle dated 07/01/2021 and the prior examination of the right foot dated 10/15/2019. FINDINGS: Six views of the right foot and ankle are submitted. Osseous mineralization is normal. There is no fracture or dislocation. The joint spaces are preserved. The soft tissues are unremarkable. XR/XR ankle RT 2V IMPRESSION: Unremarkable examination of the right foot and ankle. Electronically signed by: Brandon Shafer MD 02/21/2025 10:01 AM EDT
[2025-02-21 08:51] VITALS: BP 113/69; PULSE 74; RESP 16; TEMP 36.2; O2SAT 99; BMI 33.6
--- NOTE | 2025-02-21 09:26 | ED.LOWEXIN ---
HPI - Extremity Injury (Lower) General Chief Complaint: Extremity Injury, Lower Stated Complaint: right ankle pain swelling Time Seen by Provider: 02/21/25 09:07 Source: patient Mode of arrival: ambulatory Limitations: no limitations History of Present Illness ED Provider: yang moreira pa-c HPI Narrative: 24 year old female presents to the ED today for evaluation of right foot and ankle pain s/p rolling her ankle 3 hours ago. She states that while ambulating she missed a step causing her to roll her right ankle. You reports falling onto her side. No other injury. No head strike or LOC. She reports pain to the top of her right foot/ankle. She was able to stand up and ambulate after rolling her right ankle. Pain is currently 3/10 at rest. 8/10 with bearing weight. She did not trial any [id number] pain meds prior to arrival. Denies numbness, tingling, weakness of the right lower extremity. Related Data Home Medications ?Medication ?Instructions ?Recorded ?Confirmed aspirin 81 mg tablet,delayed 162 mg PO DAILY 06/09/23 06/09/23 release vitamin with calcium 1 tab PO DAILY 06/09/23 06/09/23 no.72-iron 27 mg-folic acid 1 mg tablet (M-Shira Plus) Allergies Allergy/AdvReac Type Severity Reaction Status Date / Time pseudoephedrine (From AdvReac Mild Rash Verified 02/21/25 08:53 DayQuil Sinus Pressure/Pain) Review of Systems Review of Systems: Constitutional: No fever, chills, fatigue, night sweats, weight changes ENT/Mouth: No ear pain, hearing loss, nasal congestion, sinus pain, rhinorrhea, sore throat Eyes: No eye pain, swelling, redness, vision changes, discharge Cardio: No chest pain, palpitations, [place], orthopnea, peripheral edema Pulm: No SOB, cough, sputum, wheezing, dyspnea, hemoptysis GI: No nausea, vomiting, hematemesis, abdominal pain, diarrhea, constipation, hematochezia, melena : No irregular bleeding, dysuria, frequency, urgency, hesitancy, hematuria, flank pain, urinary flow changes, urinary incontinence or retention MSK: No back pain, neck pain, joint pain, myalgias, +R ankle pain Skin: No lesions, rashes Neuro: No weakness, numbness, paresthesias, LOC, dizziness, headache Psych: No anxiety/panic, depression, SI/HI, AH/VH All other systems reviewed and are negative. [facility] Past Medical History Attestation statement: The following information was validated with the patient. Source: old records reviewed and nursing notes reviewed Medical History Viral upper respiratory tract infection with cough Migraine Social History Social History Housing: Apartment Alcohol intake: never Patient Tobacco Use Status: Never used Tobacco Smoked in Last 30 Days: No e-Cigarette/Vaping Use: Never Used Advance Directives: No Advance Directives Information Provided: No Do you have a plan to hurt others: No Plan service: No Current occupational status: employed Cognitive needs: No Hearing needs: No Vision needs: No Physical Exam Vital Signs: Vital Signs: Last Vital Signs Temp 97.2 F 02/21/25 08:51 Pulse 74 02/21/25 08:51 Resp 16 02/21/25 08:51 BP 113/69 02/21/25 08:51 Pulse Ox 99 02/21/25 08:51 O2 Del Method Room Air 02/21/25 08:51 BMI result Body Mass Index 33.6 Vital signs stable General: Well appearing, in no acute distress. Skin: Warm, dry, intact. No rashes or lesions. Head: Normocephalic, atraumatic. EENT: Hearing is intact b/l. Conjunctiva clear. Sclera is anicteric. PERRLA. EOM intact. Moist mucous membranes.? Cardiac: Chest wall symmetric. RRR Lungs: Normal respiratory effort without accessory muscle use. CTA bilaterally Back: No midline spinous or paraspinal tenderness. No step off deformity. Ext: +right ankle w/ minimal swelling to lateral aspect, ttp of lateral aspect/dorsal aspect. No palpable deformity or crepitus. Range of motion intact to dorsiflexion, plantar flexion and inversion/eversion with some pain elicited. 2+ DP pulse intact. Cap refill less than 2 seconds. Neuro: AOx3. Normal speech. Course Course Course Narrative: Treated with Toradol in the ED. X-ray right foot/ankle without fracture. Likely sprain. Provided with Pepe wrap and crutches. Advised Tylenol/Motrin. Patient has remained stable throughout ED visit today. Discussed worrisome signs and symptoms and when to return to the ED. All questions answered at this time. Patient is agreeable with disposition and stable for discharge. Medications Administered Discontinued Medications Generic Name Dose Route Start Last Admin Trade Name Aviq PRN Reason Stop Dose Admin Ketorolac Tromethamine 30 mg 02/21/25 09:36 02/21/25 10:14 Ketorolac Tromethamine 30 Mg/Ml Vial IM 02/21/25 09:37 30 mg ONCE ONE Administration Medical Decision Making Medical Decision Making MDM Narrative: 24 year old female presents to the ED today for evaluation of right foot and ankle pain s/p rolling her ankle 3 hours ago. Vital signs stable. She is well-appearing and in no acute distress. on exam, right ankle w/ minimal swelling to lateral aspect, ttp of lateral aspect/dorsal aspect. No palpable deformity or crepitus. Range of motion intact to dorsiflexion, plantar flexion and inversion/eversion with some pain elicited. 2+ DP pulse intact. Cap refill less than 2 seconds. Differential diagnosis includes msk sprin/strain, ankle/foot fracture, arthritis, dislocation. Unlikely NV compromise, threat to limb, compartment syndrome. Presentation not consistent with gout, pseudogout. Plan for x-rays, pain control, re-evaluation. Differential Diagnosis Differential Diagnoses: The differential diagnosis associated with the presentation includes as above. Admission/Observation not indicated. Independent Interpretation I performed an independent interpretation of an: Plain X-Ray Interpretation: xr r foot/ankle without fracture Radiology Impression Discussion of test interpretation with radiology: I have reviewed the radiologist's reading. Radiologist Impression: Date of Service: 02/21/25 Procedure(s): XR ankle RT 2V Accession Number(s): [id number] cc: Juan Ku MD; Kike Reynolds MD~ EXAMINATION: XR ANKLE 2 VIEWS RIGHT, XR FOOT 3 OR MORE VIEWS RIGHT HISTORY: FALL, MEDIAL PAIN COMPARISON: Comparison is made with the prior examination of the right ankle dated 07/01/2021 and the prior examination of the right foot dated 10/15/2019. FINDINGS: Six views of the right foot and ankle are submitted. Osseous mineralization is normal. There is no fracture or dislocation. The joint spaces are preserved. The soft tissues are unremarkable. XR/XR ankle RT 2V IMPRESSION: Unremarkable examination of the right foot and ankle. Electronically signed by: Brandon Shafer MD 02/21/2025 10:01 AM EDT Date of Service: 02/21/25 Procedure(s): XR foot RT min 3V Accession Number(s): [id number] cc: Kike Reynolds MD; Yang Moreira~ EXAMINATION: XR ANKLE 2 VIEWS RIGHT, XR FOOT 3 OR MORE VIEWS RIGHT HISTORY: FALL, MEDIAL PAIN COMPARISON: Comparison is made with the prior examination of the right ankle dated 07/01/2021 and the prior examination of the right foot dated 10/15/2019. FINDINGS: Six views of the right foot and ankle are submitted. Osseous mineralization is normal. There is no fracture or dislocation. The joint spaces are preserved. The soft tissues are unremarkable. XR/XR foot RT min 3V IMPRESSION: Unremarkable examination of the right foot and ankle. Electronically signed by: Brandon Shafer MD 02/21/2025 10:01 AM EDT Prescription Management I considered prescription management with: Pain Medication Social Determinants Patient?s care significantly limited by Social Determinants of Health including: Other Social Determinant of Health Procedures Orthopedic Splinting/Casting Injury #1: Side: right Lower Extremity Injury Location: ankle Lower Extremity Immobilizer: Pepe wrap Other Orthopedic Equipment: crutches Critical Care Time Critical Care Time Critical Care Time: No Discharge Plan Discharge Clinical Impression: Right ankle sprain Patient Disposition: Home, Self-Care Instructions: Crutch Instructions (ED), P.R.I.C.E. Treatment (ED) Additional Instructions: You have been evaluated in the Emergency Department today for right ankle/foot pain. Your evaluation did not show any fracture. You sprained your ankle. We have placed your ankle in an Pepe wrap today for compression. We have provided crutches for you to use while you heal. Please rest and elevate the affected area above heart level to minimize swelling. I recommend you take 600mg ibuprofen every 6 hours or tylenol 650mg every 6 hours as needed for pain. If needed, you can alternate these medications so that you take one medication every 3 hours. For example, at noon take ibuprofen, then at 3pm take tylenol, then at 6pm take ibuprofen.? Return to the Emergency Department if you experience worsening pain, numbness, tingling, change of color in your toes/fingers, or any other concerning symptoms. Prescriptions: No Action M- Plus 27 mg iron- 1 mg tablet 1 tab PO DAILY aspirin 81 mg tablet,delayed release (DR/EC) 162 mg PO DAILY Referrals: Po,Kike Huffman MD [Primary Care Provider, Internal Medicine] Stand Alone Forms: Work/School Release Print Language: [place] Helen[place]
[2025-02-21 10:54] VITALS: BP 110/57; PULSE 79; RESP 16; TEMP 36.2; O2SAT 97
== END 2025-02-21 10:56 | disposition home or self-care (01) ==
PROVIDERS: Emergency Provider Emergency Medicine; PCP Internal Medicine
DX: S93.401A Sprain of unspecified ligament of right ankle, initial encounter (principal); W10.8XXA Fall (on) (from) other stairs and steps, initial encounter; Y93.9 Activity, unspecified; Y92.9 Unspecified place or not applicable; Y99.9 Unspecified external cause status
CPT/HCPCS: 73600; 73630; 96372; 99284; J1885

== ENCOUNTER → 2025-02-21 09:48 | Outpatient (BNV) | payer BC, SELFPAY | PROVIDERS: Emergency Provider Emergency Medicine; PCP Internal Medicine; Visit Provider Radiology Diagnostic Radiology | DX: M79.671 Pain in right foot (principal); M25.571 Pain in right ankle and joints of right foot; W19.XXXA Unspecified fall, initial encounter | CPT/HCPCS: 73600; 73630 ==

== ENCOUNTER 2025-07-06 13:01 | Outpatient (AMB) | payer BC, SELFPAY ==
[2025-07-06 13:19] VITALS: BP 114/72; PULSE 67; O2SAT 98; BMI 33.7
--- NOTE | 2025-07-06 13:19 | A.OFFPC_ITS ---
Vital Signs 07/06/25 13:19 Height 5 ft 3 in Weight 190 lb BMI 33.7 BP 114/72 Blood Pressure Location Lt brachial Position Sitting Pulse 67 Pulse Source Pulse Oximeter Pulse Oximetry (%) 98 Oxygen Delivery Method Room Air Intake Visit Reasons: annual exam Tobacco use date assessed: 07/06/25 Dental Screening Dental Screen Date: 07/06/25 Did you have a dental visit in the last 12 months?: Yes Did you have a dental problem in the last 6 months where you did not have access to dental care?: No Was dental information given to patient?: Patient has dentist HPI HPI Comments History of Present Illness Details History of Present Illness The patient is a 25 year old female presenting for a physical exam. She is described as obese and was last seen in 2022. Health Maintenance - The patient was counseled on avoiding viral illnesses, noting that COVID-19 and RSV are present, while the flu season has not yet started. - Discussed that vaccination helps preve nt illness but does not provide complete immunity. Social History Results [facility] Medical History Viral upper respiratory tract infection with cough Migraine Social History Housing: Apartment Alcohol intake: never Patient Tobacco Use Status: Never used Tobacco Tobacco use type: Cigarette e-Cigarette/Vaping Use: Never Used Second Hand Smoke Exposure: No service: No Current occupational status: employed Cognitive needs: No Hearing needs: No Vision needs: Yes Questionnaire PHQ-9 Over the last 2 weeks, how often have you been bothered by any of the following problems? 1. Little interest or pleasure in doing things: several days 2. Feeling down, depressed, or hopeless: not at all 3. Trouble falling or staying asleep, or sleeping too much: not at all 4. Feeling tired or having little energy: several days 5. Poor appetite or overeating: not at all 6. Feeling bad about yourself - or that you are a failure or have let yourself or your family down: not at all 7. Trouble concentrating on things, such as reading the newspaper or watching television: several days 8. Moving or speaking so slowly that other people could have noticed. Or the opposite - being so fidgety or restless that you have been moving around a lot more than usual: not at all 9. Thoughts that you would be better off or of hurting yourself in some way: not at all Total score: 3 Depression Screening Interpretation: Positive Depression Screening Done: Yes Source: Developed by Drs. Brandon Murdock, Libra Hawthorne, Artie Amezquita and colleagues, with an educational isidoro from [employer]. Thrive Questionnaire Date Thrive assessed: 07/06/25 I am a: Patient What is your living situation today?: I have a steady place to live Within the past 12 months, did the food you bought not last and you didn't have the money to get more?: Never true Within the past 12 months, did you worry whether your food would run out before you got money to buy more?: Never true Do you have trouble paying for medicines?: No Do you have trouble getting transportation to medical appointments?: No Do you have trouble paying your heating and electricity bill?: No Do you have trouble taking care of your child, family member or friend?: No Do you have trouble with day-to-day activities such as bathing, preparing meals, shopping, managing finances, etc.?: No Are you currently unemployed and looking for a job?: No Are you interested in more education?: Yes Please select the resources that you would like help with: Childcare, Job search/training and Education Currently or been in a relationship where the following occur: No concerns reported THRIVE Score: 0 AUDIT C Alcohol Use Questionnaire (AUDIT-C) 1. How often do you have a drink containing alcohol?: Never 3. How often do you have six or more drinks on one occasion?: Never Total Score: 0 BENNIE-7 AMB Questionnaire BENNIE-7 Date BENNIE - 7 assessed: 07/06/25 Feeling nervous, anxious, or on edge: 0 = Not at all Not being able to stop or control worryin = Not at all Worrying too much about different things: 0 = Not at all Trouble relaxin = Not at all Being so restless that it is hard to sit still: 0 = Not at all Becoming easily annoyed or irritable: 0 = Not at all Feeling afraid as if something awful might happen: 0 = Not at all Total BENNIE-7 score (0-4 normal; 5-9 mild; 10-14 moderate; 15-21 severe): 0 Source: Developed by Drs. Brandon Murdock, Libra Hawthorne, Artie Amezquita and colleagues, with an educational isidoro from [employer]. Review of Systems Narrative Review of Systems Const Denies poor appetite and Denies weakness Eyes Denies no additional complaints ENT Reports Normal hearing present, Denies dizziness, Denies nasal congestion, Denies tinnitus and Denies sore throat Card Denies chest pain, Denies syncope, Denies rapid heart rate and Denies dyspnea Resp Denies cough and Denies dyspnea GI Denies change in stool character, Reports constipation, Denies diarrhea, Denies nausea and Denies vomiting Denies urinary frequency, Denies difficulty voiding and Denies dysuria Neuro Reports Normal hearing present, Denies confusion, Denies dizziness, Denies syncope and Denies weakness Psych Denies confusion Physical exam (Primary Care) Vital Signs: Last Vital Signs Pulse 67 07/06/25 13:19 BP 114/72 07/06/25 13:19 Pulse Ox 98 07/06/25 13:19 Oxygen Delivery Method Room Air 07/06/25 13:19 BMI result Body Mass Index 33.7 Tobacco/Smoking Status: Tobacco use Status Tobacco use date assessed 07/06/25 07/06/25 13:23 Patient Tobacco Use Status Never used Tobacco 07/06/25 13:23 Tobacco use type Cigarette 07/06/25 13:23 e-Cigarette/Vaping Use Never Used 07/06/25 13:23 PHQ-9: PHQ-9 Score PHQ-9: Total score 3 07/06/25 13:38 Depression Screening Interpretation: Positive Thrive Assessment: Date of Thrive Assessment Date Thrive assessed 07/06/25 07/06/25 13:23 Currently or been in a relationship where the following occur: No concerns reported Narrative Physical Exam General: Cooperative, healthy appearing, comfortable, no acute distress and well developed Orientation: Patient oriented x3 Limitations: No limitations Head: Normal to inspection Ears: Hearing grossly normal bilaterally Nose: Normal external nose present Face and sinus: Normal facial exam Eyes: Appearance normal, both eyes and all related structures Neck: Normal visual inspection and Yes full ROM Respiratory: Normal respiratory effort and able to speak in complete sentences. Clear to auscultation bilaterally Cardiovascular: Regular rate and rhythm. Normal S1 and S2 GI: Normal to inspection. Soft to palpation and nontender Skin: No rashes or lesions noted Neuro: Patient oriented x3 Extremities: Normal to inspection Const General: No confusion Orientation/consciousness: No confusion HENMT Head: Yes normocephalic Ears: external ears normal and TM's normal bilaterally Face and sinus: Yes normal facial exam Mouth: moist mucous membranes Throat: Yes tonsils normal Eyes Conjunctivae: conjunctivae normal Pupils: Equal, round and reactive pupils present and Pupil accommodation reflex normal Direct Ophthalmoscopy: normal light reflex Neck Neck: No lymphadenopathy Thyroid: Thyroid normal Chest Chest palpation & inspection: normal inspection of the chest Resp Effort & Inspection: normal respiratory effort and no audible wheezes Auscultation: clear to auscultation bilaterally, no crackles, no wheezes and lung sounds not diminished Cardio Rate: regular rate Rhythm: regular rhythm Peripheral pulses: radial pulses present and dorsalis pedis present GI Palpation (GI): no masses Auscultation: normal bowel sounds and normoactive bowel sounds Rectal Exam - Female: deferred Skin General skin exam: no rashes or lesions noted Rashes: no rashes Neuro General: No confusion Cranial nerves: Yes Equal, round and reactive pupils present and Yes Normal hearing present Cognition (Neuro): normal cognition Gait exam (Neuro): Normal gait present Motor exam (neuro): 5/5 motor strength present throughout Deep tendon reflexes (DTR's): Right brachioradialis reflex intensity grade: 2+, Left brachioradialis reflex intensity grade: 2+, Right patellar reflex intensity grade: 2+ and Left patellar reflex intensity grade: 2+ Extrem General: No edema Office Procedures Flu Questionnaire Does the patient have a severe egg allergy?: No Does the patient have severe life threatening allergies?: No Does the patient have a fever or illness today?: No Has the patient ever had Guillain-Marquette Syndrome?: No Has the patient ever had any past reaction to a flu shot?: No Immunizations Fluarix [id number] (PF) 45 mcg (15 mcg x 3)/0.5 mL IM syringe Performing Provider: Kike Reynolds MD [place]forming Location[place] [facility] Administered by: Emily Pascual CMA on 07/06/25 13:30 Dose Route Admin Location Dispensed Lot Number Expiration Date ND Oven Press Tender 0.5 mL IM Left Deltoid 0.5 mL [id number] 06/30/26 [id number] [employer] User Inter[employer] VIS Given Date VIS Provided VIS Publication Date 07/06/25 Single Vaccine 24 Eligibility Eligibility Date Funding Source Not [facility] Eligible 07/06/25 Private Coding Level of Care Code Est Pt Prev Care [id number]) Diagnoses Annual physical exam Z00.00 Obesity (BMI 30-39.9) E66.9 Headache R51.9 Assessment & Plan Assessment & Plan (1) Annual physical exam: Code(s): Z00.00 - Encounter for general adult medical examination without abnormal findings Category: Medical Plan: Patient is advised to eat healthy, keep well hydrated, keep active and have adequate sleep. (2) Obesity (BMI 30-39.9): Code(s): E66.9 - Obesity, unspecified Category: Medical Plan: Diet and exercise (3) Headache: Code(s): R51.9 - Headache, unspecified Category: Medical Plan Plan Patient was informed and verbally consented to the use of an ambient scribe for clinic note documentation during this visit. 1. Annual Physical Examination The patient was counseled to be careful regarding viral illnesses, as COVID-19 and RSV are present. It was noted that flu season has not yet begun. The role of vaccines was discussed, explaining that they are helpful but do not make a person immune to infection. 2. Obesity The patient's obesity was noted. Discussion Notes I advised the patient to be cautious to avoid viral illnesses, noting that COVID-19 and RSV are circulating in the community, although the flu season has not yet started. I explained that while vaccines are beneficial, they do not provide complete immunity, and it is still possible to contract an illness. Patient Instructions - Be careful to avoid getting sick from viruses like COVID-19 and RSV. - Remember that even if you have been vaccinated, you can still get sick, so it is important to take precautions. Orders: Orders Influenza [id number] Immunization Today Z23 - Encounter for immunization Lipid Panel Today E78.00 - Pure hypercholesterolemia, unspecified, R51.9 - Headache, unspecified Thyroid Stimulating Hormone Today R51.9 - Headache, unspecified Free T4 (Free Thyroxine) Today R51.9 - Headache, unspecified Vitamin B12 and Folate Today R51.9 - Headache, unspecified UA CC w/rflx Micro + Cult Today R30.0 - Dysuria, R51.9 - Headache, unspecified Vitamin D 25-OH Total Today R51.9 - Headache, unspecified Complete Blood Count Auto Diff Today R51.9 - Headache, unspecified Comprehensive Met. Panel Today R51.9 - Headache, unspecified Hemoglobin A1c Today R51.9 - Headache, unspecified
== END 2025-07-06 14:55 | disposition home or self-care (01) ==
LOC: HO.HMCH 13:02
PROVIDERS: PCP Internal Medicine; Visit Provider Internal Medicine
DX: Z00.00 Encounter for general adult medical examination without abnormal findings (principal); E66.9 Obesity, unspecified; R51.9 Headache, unspecified; Z68.33 Body mass index [BMI] 33.0-33.9, adult; Z23 Encounter for immunization

== ENCOUNTER → 2025-07-06 13:01 | Outpatient (BNVA) | payer BC, SELFPAY | PROVIDERS: PCP Internal Medicine; Visit Provider Internal Medicine | DX: Z23 Encounter for immunization (principal) | CPT/HCPCS: 90471; 90656 ==

== ENCOUNTER 2025-07-17 09:25 | Outpatient (REF) | payer BC, SELFPAY ==
[2025-07-17 09:48] LABS: MANUAL DIFF FLAG NO
[2025-07-17 10:22] LABS: Hematocrit 40.3 % (37.0-47.0); Hemoglobin 13.6 g/dl (12.0-16.0); Imm Gran Abs Auto 0.02 X10*3/uL (0.00-0.03); Imm Gran Pct Auto 0.3 % (0.0-0.4); Lymphocytes Absolute Auto 1.1 X10*3/uL (1.2-4.9); Mean Corpuscular HGB Conc 33.7 g/dl (31.0-35.0); Mean Corpuscular Hemoglobin 30.1 pg (27.0-33.0); Mean Corpuscular Volume 89.2 fL (80.0-98.0); NRBC Abs Auto 0.000 X10*3/uL (0.0-0.012); NRBC Pct Auto 0.0 /100WBC (0.0-0.2); Platelet Count 337 X10*3/uL (160-400); Red Blood Count 4.52 X10*6/uL (4.20-5.50); White Blood Count 6.9 X10*3/uL (4.8-10.8)
[2025-07-17 11:04] LABS: Alanine Aminotransferase 20 U/L (0-31); Albumin Level 4.7 g/dL (3.5-5.0); Alkaline Phosphatase 79 U/L (39-117); Anion Gap 12 (12-20); Aspartate Amino Transferase 19 U/L (5-31); Blood Urea Nitrogen 11 mg/dL (9-16); Calcium 8.9 mg/dL (8.4-10.2); Carbon Dioxide 22 mmol/L (22-29); Chloride 110 mmol/L (96-108); Cholesterol 124 mg/dL (<200); Estimated Glomerular Filt Rate > 60; Free T4 (Free Thyroxine) 0.79 ng/dL (0.71-1.85); HDL Cholesterol 39 mg/dL (>40); Potassium 4.0 mmol/L (3.3-5.1); Sodium 140 mmol/L (135-145); Thyroid Stimulating Hormone 1.94 uIU/mL (0.32-4.0); Total Protein 7.5 g/dL (6.5-8.0); Triglycerides 48 mg/dL (<150)
[2025-07-17 11:16] LABS: Folate 6.7 ng/mL (> or = 4.0); Vitamin B12 387 pg/mL (200-900)
== END 2025-07-17 09:26 | disposition home or self-care (01) ==
LOC: HO.LAB 09:25
PROVIDERS: PCP Internal Medicine; Visit Provider Internal Medicine
DX: Z13.1 Encounter for screening for diabetes mellitus (principal); Z13.21 Encounter for screening for nutritional disorder; E78.00 Pure hypercholesterolemia, unspecified; R51.9 Headache, unspecified
CPT/HCPCS: 36415; 80053; 80061; 82306; 82607; 82746; 83036; 84439; 84443; 85025

== ENCOUNTER 2025-07-18 15:55 | Outpatient (REF) | payer BC, SELFPAY ==
[2025-07-18 16:11] LABS: Appearance Urine Cloudy; Glucose Urine UA Negative (Negative); PH 5.5 (5.0-9.0); Specific Gravity - Urine 1.025 (1.005-1.025); UMIC TRIGGER UACC YES
[2025-07-18 16:30] LABS: UACC Culture Trigger YES
--- OUTSIDE RECORDS SUMMARY | 2025-07-18 20:03 | XMS_ITS | Encounter Summary ---
Author Organization [facility] Address [address] [place] [id number] Phone Care Team Providers Care Bullet Charging Machine Operator Name Role Phone Masha Villalta MD Primary Care Provider [phone] Encounter Details Date Type Department Care Team (Late st Contact Info) Description 05/30/2015 Documentation [facility] [place] Family Medicine [address] [place] [address] Family Medicine, Physician [address] [place], [place] [id number] Social History Tobacco Use Types Packs/Day Years Used Date Smoking Tobacco: Never Assessed Comments Unknown Sex and Gender Information Value Date Recorded Sex Assigned at Female 03/14/2020 6:41 PM EDT Legal Sex Female 4:53 PM EDT Gender Identity Female 03/14/2020 6:41 PM EDT Sexual Orientation Straight 03/14/2020 6: 41 PM EDT documented as of this encounter Plan of Treatment Not on file documented as of this encounter Visit Diagnoses Not on filedocumented in this encounter Care Teams Bullet Charging Machine Operator Relationship Specialty Start Date End Date Masha Villalta MD PCP - General Pediatrics 03/07/20 08/26/22 documented as of this encounter
--- OUTSIDE RECORDS SUMMARY | 2025-07-18 20:03 | XMS_ITS | Encounter Summary ---
Author Organization [facility] Address [address] [place] [address] Phone Care Team Providers Care Physicist Cryogenics Name Role Phone Masha Villalta MD Primary Care Provider [phone] Reason for Visit * Reason Comments Med Refill Encounter Details Date Type Department Care Team ([facility] Contact Info) Description 10/11/2020 Refill [facility] [address] [place] [address] Masha Villalta MD [address] [facility] [address] [place] [address] High risk heterosexual behavior; Irregular menstrual cycle Social History Tobacco Use Types Packs/Day Years Used Date Smoking Tobacco: Never Smokeless Tobacco: Never Comments:Never smoker Alcohol Use Standard Drinks/Week Comments No 0 (1 standard drink = 0.6 oz pur e alcohol) Hunger/Food Answer Date Recorded In the last 12 months, did y ou or your family ever eat less than you felt you should because there wasn't enough money for food? No 03/14/2020 Stable Housing Answer Date Recorded Are you worried that in the next 2 months you may not have stable housing? No 03/14/2020 Transportation Concerns Answer Date Rec orded In the last 12 months, have you or your family ever had to go without healthcare because you didn't have a way to get there? No 03/14/2020 Hazards in Home Answer Date Recorded Think about the place you li ve. Do you have problems with any of the following? Pests (mice or roaches), mold, no/not working smoke detectors, water leaks, no window guards. No 2019 Financing Utilities Answer Date Recorde d In the last 12 months, has t he electric, gas, oil, or water company threatened to shut off your services in your home? No 03/14/2020 Safety at Home Answer Date Recorded Are you or your family worried about feeling saf e in your home? No 03/14/2020 Outside Support Answer Date Recorded Do you feel that you need mo re support from other people or programs to help you care for yourself or your family? No 03/14/2020 Understanding Health Concerns Answer Da te Recorded Do you need help understandi ng your or your child's healthcare needs (diagnosis, medications, plan, etc.)? No 03/14/2020 Financing Health Concerns Answer Date R ecorded In the last 12 months, was t here a time when your child needed to see a doctor or get medications or supplies but could not because of cost? No 03/14/2020 Missing School or Work Answer Date Agustín rded Did you or your child miss s chool or work because of a health problem that could have been avoided? No 03/14/2020 Comments No Sex and Gender Information Value Date Recorded Sex Assigned at Female 03/14/2020 6:41 PM EDT Legal Sex Female 4:53 PM EDT Gender Identity Female 03/14/2020 6:41 PM EDT Sexual Orientation Straight 03/14/2020 6: 41 PM EDT documented as of this encounter Miscellaneous Notes * Telephone Encounter - Masha Villalta MD - 10/11/2020 4:41 PM EST I will fill this for 1 more month to allow her to reschedule her cancelled OCP f/up. I also realized that she was referred to Endocrinology last fall and should have been seen in April for a thyroid concern, but she missed the appointment and was encouraged to reschedule.I have still not received a consult note- so am guessing she has never been seen. I would like to see her in the office [facility]- next week. A 15 min slot will have to do! * Telephone Encounter - Carrie Appel LPN - 10/11/2020 10:18 AM EST Pharm requesting refill OCP. Pt was to have had [facility] OCP check on 10/03 which she cancelled. VM left asking pt to call. Will send to Dr. Villalta for 10/15. EH documented in this encounter Plan of Treatment Not on file documented as of this encounter Visit Diagnoses Diagnosis High risk heterosexual behavior Irregular menstrual cycle documented in this encounter Care Teams Physicist Cryogenics Relationship Specialty Start Date End Date Masha Villalta MD PCP - General Pediatrics 03/07/20 08/26/22 documented as of this encounter
--- OUTSIDE RECORDS SUMMARY | 2025-07-18 20:03 | XMS_ITS | Encounter Summary ---
Author Organization [facility] Address [address] [place] [id number] Phone Care Team Providers Care Web Press Roll Tender Name Role Phone Masha Villalta MD Primary Care Provider [phone] Encounter Details Date Type Department Care Team (Late st Contact Info) Description 04/17/2014 Documentation [facility] [place] Family Medicine [address] [place] [address] Family Medicine, Physician [address] [place], [place] [id number] Social History Tobacco Use Types Packs/Day Years [...] on filedocumented in this encounter Care Teams Web Press Roll Tender Relationship Specialty Start Date End Date Masha Villalta MD PCP - General Pediatrics 03/07/20 08/26/22 documented as of this encounter
--- OUTSIDE RECORDS SUMMARY | 2025-07-18 20:03 | XMS_ITS | Encounter Summary ---
Author Organization [facility] Address [address] [place] [address] Phone Care Team Providers Care Rn Residential Name Role Phone Masha Villalta MD Primary Care Provider [phone] Encounter Details Date Type Department Care Team (Late st Contact Info) Description 05/30/2015 Documentation [facility] [place] Family Medicine [address] [place] [address] Family Medicine, Physician [address] [place], [place] [id number] Social History Tobacco Use Types Packs/Day Years [...] on filedocumented in this encounter Care Teams Rn Residential Relationship Specialty Start Date End Date Masha Villalta MD PCP - General Pediatrics 03/07/20 08/26/22 documented as of this encounter
--- OUTSIDE RECORDS SUMMARY | 2025-07-18 20:03 | XMS_ITS | Encounter Summary ---
Author Organization [facility] Address [address] [place] [address] Phone Care Team Providers Care Nutrition Associate Name Role Phone Masha Villalta MD Primary Care Provider [phone] Encounter Details Date Type Department Care Team (Late st Contact Info) Description 03/19/2017 Conversion Encounter [facility] - [address] [address] Social History Tobacco Use Types Packs/Day Years Used Date Smoking Tobacco: Never Comments:Never smoker Comments Unknown Sex and Gender Information Value [...] on filedocumented in this encounter Care Teams Nutrition Associate Relationship Specialty Start Date End Date Masha Villalta MD PCP - General Pediatrics 03/07/20 08/26/22 documented as of this encounter
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
--- OUTSIDE RECORDS SUMMARY | 2025-07-18 20:03 | XMS_ITS | Encounter Summary ---
Author Organization [facility] Address [address] [place] [address] Phone Care Team Providers Care Sheetmetal Patternmaker Name Role Phone Masha Villalta MD Primary Care Provider [phone] Encounter Details Date Type Department Care Team (Late st Contact Info) Description 06/23/2011 Documentation [facility] [place] Family Medicine [address] [place] [address] Family Medicine, Physician [address] [place], [place] [address] Social History Tobacco Use Types Packs/Day Years [...] on filedocumented in this encounter Care Teams Sheetmetal Patternmaker Relationship Specialty Start Date End Date Masha Villalta MD PCP - General Pediatrics 03/07/20 08/26/22 documented as of this encounter
--- OUTSIDE RECORDS SUMMARY | 2025-07-18 20:03 | XMS_ITS | Encounter Summary ---
Author Organization [facility] Address [address] [place] [address] Phone Care Team Providers Care Drosser Name Role Phone Masha Villalta MD Primary Care Provider [phone] Encounter Details Date Type Department Care Team (Late st Contact Info) Description 09/03/2016 Documentation [place] [facility] [address] [place] [address] Family Medicine, Physician [address] [place] [address] Social History Tobacco Use Types Packs/Day Years [...] on filedocumented in this encounter Care Teams Drosser Relationship Specialty Start Date End Date Masha Villalta MD PCP - General Pediatrics 03/07/20 08/26/22 documented as of this encounter
--- OUTSIDE RECORDS SUMMARY | 2025-07-18 20:03 | XMS_ITS | Encounter Summary ---
Author Organization [facility] Address [address] [place] [address] Phone Care Team Providers Care Mortar Man Name Role Phone Masha Villalta MD Primary Care Provider [phone] Encounter Details Date Type Department Care Team (Late st Contact Info) Description 09/03/2016 Documentation [facility] [place] [address] [place] [address] Family Medicine, Physician [address] [place] [address] Social History Tobacco Use Types Packs/Day Years [...] on filedocumented in this encounter Care Teams Mortar Man Relationship Specialty Start Date End Date Masha Villalta MD PCP - General Pediatrics 03/07/20 08/26/22 documented as of this encounter
--- OUTSIDE RECORDS SUMMARY | 2025-07-18 20:03 | XMS_ITS | Encounter Summary ---
Author Organization [facility] Address [address] [place] [address] Phone Care Team Providers Care Fire Control System Installer Name Role Phone Masha Villalta MD Primary Care Provider [phone] Encounter Details Date Type Department Care Team (Late st Contact Info) Description 05/30/2015 Documentation [facility] [place] Family Medicine [address] [place] [address] Family Medicine, Physician [address] [place], [place] [id number] Social History Tobacco Use Types Packs/Day Years [...] on filedocumented in this encounter Care Teams Fire Control System Installer Relationship Specialty Start Date End Date Masha Villalta MD PCP - General Pediatrics 03/07/20 08/26/22 documented as of this encounter
--- OUTSIDE RECORDS SUMMARY | 2025-07-18 20:03 | XMS_ITS | Encounter Summary ---
Author Organization [facility] Address [address] [place] [address] Phone Care Team Providers Care Garment Manufacturer Name Role Phone Masha Villalta MD Primary Care Provider [phone] Encounter Details Date Type Department Care Team (Late st Contact Info) Description 08/10/2014 Documentation [facility] [place] Family Medicine [address] [place] [address] Family Medicine, Physician [address] [place], [place] [id number] Social History Tobacco Use Types Packs/Day Years [...] on filedocumented in this encounter Care Teams Garment Manufacturer Relationship Specialty Start Date End Date Masha Villalta MD PCP - General Pediatrics 03/07/20 08/26/22 documented as of this encounter
--- OUTSIDE RECORDS SUMMARY | 2025-07-18 20:03 | XMS_ITS | Encounter Summary ---
Author Organization [facility] Address [address] [place] [address] Phone Care Team Providers Care Deaf And Hard Of Hearing Teacher Name Role Phone Masha Villalta MD Primary Care Provider Encounter Details Date Type Department Care Team (Late st Contact Info) Description 06/23/2011 Documentation [facility] [place] Family Medicine [address] [place] [address] Family Medicine, Physician [address] [place], [place] [address] Social History Tobacco Use Types Packs/Day Years [...] on filedocumented in this encounter Care Teams Deaf And Hard Of Hearing Teacher Relationship Specialty Start Date End Date Masha Villalta MD PCP - General Pediatrics 03/07/20 08/26/22 documented as of this encounter
--- OUTSIDE RECORDS SUMMARY | 2025-07-18 20:03 | XMS_ITS | Encounter Summary ---
Author Organization [facility] Address [address] [place] [address] Phone Care Team Providers Care Keg Varnisher Name Role Phone Masha Villalta MD Primary Care Provider [phone] Encounter Details Date Type Department Care Team (Late st Contact Info) Description 04/17/2014 Documentation [facility] [place] [address] [place] [address] Family Medicine, Physician [address] [place], [place] [address] Social History Tobacco Use Types Packs/Day Years [...] on filedocumented in this encounter Care Teams Keg Varnisher Relationship Specialty Start Date End Date Masha Villalta MD PCP - General Pediatrics 03/07/20 08/26/22 documented as of this encounter
--- OUTSIDE RECORDS SUMMARY | 2025-07-18 20:03 | XMS_ITS | Encounter Summary ---
Author Organization [facility] Address [address] [place] [address] Phone Care Team Providers Care Account Planner Name Role Phone Masha Villalta MD Primary Care Provider [phone] Reason for Visit * Reason Comments Med Refill Encounter Details Date Type Department Care Team (Late st Contact Info) Description 09/19/2020 Refill [facility] [place] [address] [place] [address] Bhavana Jason MD [address] [place] [address] High risk heterosexual behavior; Irregular menstrual cycle [...] encounter Miscellaneous Notes * Telephone Encounter - Elvie Henriquez MA - 09/19/2020 8:23 AM EST Pharm refill request for junel Pt with an OCP check in two weeks. Well visit current. Refill to PCP documented in this encounter Plan of Treatment Not on file documented as of this encounter Visit Diagnoses Diagnosis High risk heterosexual behavior Irregular menstrual cycle documented in this encounter Care Teams Account Planner Relationship Specialty Start Date End Date Masha Villalta MD PCP - General Pediatrics 03/07/20 08/26/22 documented as of this encounter
--- OUTSIDE RECORDS SUMMARY | 2025-07-18 20:03 | XMS_ITS | Encounter Summary ---
Author Organization [facility] Address [address] [place] [address] Phone Care Team Providers Care Chemical Processing Technician Name Role Phone Masha Villalta MD Primary Care Provider [phone] Encounter Details Date Type Department Care Team (Late st Contact Info) Description 04/17/2014 Documentation [facility] [place] [address] [place] [address] Family Medicine, Physician [address] [place], [place] [address] Social History Tobacco Use Types Packs/Day Years [...] on filedocumented in this encounter Care Teams Chemical Processing Technician Relationship Specialty Start Date End Date Masha Villalta MD PCP - General Pediatrics 03/07/20 08/26/22 documented as of this encounter
--- OUTSIDE RECORDS SUMMARY | 2025-07-18 20:03 | XMS_ITS | Encounter Summary ---
Author Organization [facility] Address [address] [place] [address] Phone Care Team Providers Care Emts Name Role Phone Masha Villalta MD Primary Care Provider [phone] Encounter Details Date Type Department Care Team (Late st Contact Info) Description 09/03/2016 Documentation [facility] [place] Family Medicine [address] [place] [address] Family Medicine, Physician [address] [place] [address] Social History Tobacco Use Types Packs/Day Years [...] on filedocumented in this encounter Care Teams Emts Relationship Specialty Start Date End Date Masha Villalta MD PCP - General Pediatrics 03/07/20 08/26/22 documented as of this encounter
== END 2025-07-18 15:56 | disposition home or self-care (01) ==
LOC: HO.LNP 15:55
PROVIDERS: Visit Provider Internal Medicine
DX: R30.0 Dysuria (principal); R51.9 Headache, unspecified
CPT/HCPCS: 81001; 81003; 87086